=== PATIENT | female | born 1970 | race Two or more races ===

== ENCOUNTER 2021-06-14 12:53 | Emergency (ER) | payer OTHER ==
[~2021-06-14] VITALS: Ht 175.3 cm; Wt 95.3 kg
[2021-06-14 14:49] VITALS: BP 132/87
[2021-06-14] MEDS ORDERED: KETOROLAC TROMETH 60MG/2ML VIAL IM ONE (15:00)
== END 2021-06-14 15:11 | disposition home or self-care (01) ==
LOC: ER 12:53
DX: S66.911A Strain of unspecified muscle, fascia and tendon at wrist and hand level, right hand, initial encounter (principal); M19.071 Primary osteoarthritis, right ankle and foot; X50.1XXA Overexertion from prolonged static or awkward postures, initial encounter; Y93.89 Activity, other specified; Y92.89 Other specified places as the place of occurrence of the external cause; Y99.8 Other external cause status
CPT/HCPCS: 29125; 73110; 73130; 73630; 96372; 99285; J1885

== ENCOUNTER 2021-12-26 13:24 | Emergency (ER) | payer OTHER ==
[~2021-12-26] VITALS: Ht 175.3 cm; Wt 90.7 kg
[2021-12-26 13:26] VITALS: BP 130/82
[2021-12-26] MEDS ORDERED: ONDANSETRON HCL 4 MG/2 ML VIAL IV ONE (14:00)
[2021-12-26] MEDS ORDERED: SODIUM CHLORIDE 0.9% 1,000 ML IV ONE (14:00)
[2021-12-26] MEDS ORDERED: KETOROLAC TROMETH 30 MG/ML 1ML VIAL IV ONE (14:00)
[2021-12-26 14:31] LABS: Basophils # (auto) 0.2 10 ^3/uL (0-0.2); Basophils % (auto) 2.5 % (0.0-2.0); Eosinophils # (auto) 0.1 10 ^3/uL (0-0.8); Eosinophils % (auto) 1.1 % (0.0-7.0); Hematocrit 40.4 % (36.0-46.0); Hemoglobin 13.1 g/dL (12.2-16.2); Lymphocytes # (auto) 0.7 10 ^3/uL (0.4-5.4); Lymphocytes % (auto) 9.8 % (10.0-50.0); Mean Corpuscular Hemoglobin 28.3 pg (28.0-32.0); Mean Corpuscular Hgb Conc. 32.5 g/dL (32.0-36.0); Mean Corpuscular Volume 86.8 fL (80.0-100.0); Monocytes # (auto) 0.9 10 ^3/uL (0-1.3); Monocytes % (auto) 11.8 % (0.0-12.0); Neutrophils # (auto) 5.4 10 ^3/uL (1.6-8.6); Neutrophils % (auto) 74.8 % (37.0-80.0); Nucleated Red Blood Cells % 0.1 %; Red Blood Cells 4.65 10^6/uL (4.0-5.20); Red Cell Distribution Width 13.9 % (11.8-14.3); White Blood Cell 7.2 10^3/uL (4.4-10.8)
[2021-12-26 14:41] LABS: Albumin 3.6 g/dL (3.4-5.0); Calcium 9.6 mg/dL (8.5-10.1); Potassium 4.5 mmol/L (3.5-5.1)
[2021-12-26 14:44] LABS: BUN/Creatinine Ratio 7.9; Bilirubin, Total 0.5 mg/dL (0.2-1.0); Total Protein 7.4 g/dL (6.4-8.2)
[2021-12-26 15:31] LABS: Urine Bacteria NONE SEEN /hpf (None Seen); Urine Blood Negative /uL (Negative); Urine Specific Gravity 1.011 (1.001-1.035); Urine WBC 1 /hpf (0 - 5)
[2021-12-26 15:51] LABS: Alcohol, Urine < 3.0 mg/dL (0-10); Amphetamine Screen, Urine NEGATIVE (NEGATIVE); Barbiturate Scree,Urine NEGATIVE (NEGATIVE); Benzodiazephine Screen, Urine NEGATIVE (NEGATIVE); Cannabinoid Screen, Urine NEGATIVE (NEGATIVE); Cocaine Screen, Urine NEGATIVE (NEGATIVE); Opiate Scree,Urine NEGATIVE (NEGATIVE); Phencyclidine Screen, Urine NEGATIVE (NEGATIVE)
[2021-12-26] MEDS ORDERED: FAMOTIDINE (10MG/ML) 2ML VL IV ONE (16:00)
[2021-12-26] MEDS ORDERED: ONDA-144 PO (16:00)
[2021-12-26] MEDS ORDERED: OME40GT PO (16:00)
== END 2021-12-26 16:27 | disposition home or self-care (01) ==
LOC: ER 13:24
DX: R10.9 Unspecified abdominal pain (principal); R11.0 Nausea; I10 Essential (primary) hypertension; T50.905A Adverse effect of unspecified drugs, medicaments and biological substances, initial encounter; Y92.9 Unspecified place or not applicable
CPT/HCPCS: 36415; 80053; 80307; 81001; 85025; 93005; 96361; 96374; 96375; 99284; J1885; J2405; J3490; J7030

== ENCOUNTER 2025-01-08 02:33 | Inpatient (IN) | payer OTHER ==
[~2025-01-08] VITALS: Ht 175.3 cm; Wt 96.1 kg
[~2025-01-08 02:33] MED LIST: OME40GT PO; ONDA-144 PO
--- NOTE | 2025-01-08 02:49 | ED.PDOC ---
GI ASSESSMENT HPI Comments 54-YEAR-OLD FEMALE BIBA FOR CC OF ABD PAIN (LLQ) X 1 DAY, AND CONSTIPATION X 1 WEEK. PT REPORTS R KNEE SX RECENTLY AND IS CURRENTLY TAKING OPIOIDS. PATIENT ALSO STATES DIFFICULTY URINATING. DENIES FEVER, CHILLS, NAUSEA, VOMITING, OR DIARRHEA. Time Seen by MD: 02:43 Reviewed Notes: Nurses Notes, Pressure Washer Notes, Medications, Allergies Allergies: Coded Allergies: Ibuprofen (Verified Allergy, Unknown, 06/14/21) Iron (Verified Adverse Reaction, Unknown, RASHES, 01/08/25) Home Meds Active Scripts Omeprazole (Prilosec Susp (For Gt)) 40 Mg Ss, 40 MG PO DAILY, #30 ML Prov:BETSEY JOHNS 12/26/21 Ondansetron (Zofran) 4 Mg Tab, 4 MG PO BID, #20 TAB Prov:BETSEY JOHNS 12/26/21 Information Source: Patient Past Medical History PAST MEDICAL HISTORY: HTN Surgical History: Denies all surgeries GENERAL ACCOUNTING CLERK History: Denies all GENERAL ACCOUNTING CLERK Hx Family History Family History: Reviewed,noncontributory to illness Social History Smoker: Non-Smoker Alcohol: Denies ETOH Use Drugs: Denies Drug Use Lives In: Home Constitutional: denies: chills, diaphoresis, fatigue, fever, malaise, sweats, weakness, others EENTM: denies: blurred vision, double vision, ear bleeding, ear discharge, ear drainage, ear pain, ear ringing, eye pain, eye redness, hearing loss, mouth pain, mouth swelling, nasal discharge, nose bleeding, nose congestion, nose pain, photophobia, tearing, throat pain, throat swelling, voice changes, others Respiratory: denies: cough, hemoptysis, orthopnea, SOB at rest, shortness of breath, SOB with excertion, stridor, wheezing, others Cardiovascular: denies: chest pain, dizzy spells, diaphoresis, Dyspnea on exertion, edema, irregular heart beat, left arm pain, lightheadedness, palpitations, PND, syncope, others Gastrointestinal: reports: abdomen distended, abdominal pain, constipated; denies: blood streaked bowels, diarrhea, dysphagia, difficulty swallowing, hematemesis, melena, nausea, poor appetite, poor fluid intake, rectal bleeding, rectal pain, vomiting, others Genitourinary: denies: abnormal vagina bleeding, burning, dyspareunia, dysuria, flank pain, frequency, hematuria, incontinence, pain, , vagina discharge, urgency, others Neurological: denies: dizziness, fainting, headache, left sided numbness, left sided weakness, numbness, paresthesia, pre-existing deficit, right sided numbness, right sided weakness, seizure, speech problems, tingling, tremors, weakness, others Musculoskeletal: denies: back pain, gout, joint pain, joint swelling, muscle pain, muscle stiffness, neck pain, others Integumetry: denies: bruises, change in color, change in hair/nails, dryness, laceration, lesions, lumps, rash, wounds, others Allergic/Immunocompromised: denies: Difficulty Healing, Frequent Infections, Hives, Itching, others Hematologic/Lymphatic: denies: anemia, blood clots, easy bleeding, easy bruising, swollen glands, others Endocrine: denies: excessive hunger, excessive sweating, excessive thirst, excessive urination, flushing, intolerance to cold, intolerance to heat, unexplained weight gain, unexplained weight loss, others Psychiatric: denies: anxiety, bipolar disorder, depression, hopeless, panic disorder, schizophrenia, sleepless, suicidal, others Physical Exam General Appearance: No Apparent Distress, Normal HEENT: Pharynx Normal Neck: Full Range of Motion, Non-Tender Respiratory: Chest Non-Tender, Lungs Clear, No Respiratory Distress, Normal Breath Sounds Cardiovascular: No Edema, No JVD, No Murmur, No Gallop, Normal Peripheral P ulses, Regular Rate/Rhythm Breast Exam: Deferred Gastrointestinal: No Organomegaly, No Pulsatile Mass, Normal Bowel Sounds, Soft, Suprapubic (Tenderness on palpation), Tenderness (Left lower quadrant with guarding), Other (Negative CVA tenderness) Genitalia: Deferred Pelvic: Deferred Rectal: Deferred Extremities: No calf tenderness, Normal capillary refill, Normal inspection, N ormal range of motion, Non-tender, No pedal edema Musculoskeletal : Apperance: Normal Neurologic: Alert, circular saw edge fuser II-XII nml as Tested, No Motor Deficits, Normal Affect, Normal Mood, No Sensory Deficits Cerebellar Function: Normal Reflexes: Normal Skin: Dry, Normal Color, Warm Lymphatic: No Adenopathy Was a procedure done? Was a procedure done?: No GI differential Dx Differential Diagnosis: Bowel Obstruction, Constipation, Diverticular disease, Gastroenteritis, Inflammatory BD, UTI, Urolithiasis X-Ray, Labs, Meds, VS Vital Signs Date Time Temp Pulse Resp B/P (MAP) Pulse Ox O2 Delivery O2 Flow Rate FiO2 01/08/25 05:00 94 34 140/79 (99) 96 01/08/25 03:30 98.4 96 12 147/72 (97) 98 98.4 01/08/25 03:15 Room Air* 0 21 01/08/25 02:33 97.9 102 20 149/96 (113) 100 97.9 Lab Test 01/08/25 04:38 01/08/25 03:50 01/08/25 03:15 Range/Units Lactic Acid Level 2.1 *H 0.4-2.0 mmol/L Urine Color Light-yellow Yellow Urine Clarity Clear Clear Urine pH 6.5 5.0-9.0 Urine Specific [place] 1.012 1.001-1.035 Urine Protein Negative Negative Urine Ketones Negative Negative Urine Blood Negative Negative /uL Urine Nitrite Negative Negative Urine Bilirubin Negative Negative Urine Urobilinogen Normal Negative mg/dL Urine Leukocyte Esterase 1+ Negative /uL Urine RBC 1 0 - 4 /hpf Urine Microscopic WBC 1 0-5 /HPF Urine Squamous Epithelial Cells Few <5 /hpf Urine Bacteria None seen None Seen /hpf Urine Glucose Normal Normal mg/dL White Blood Count 14.4 H 4.4-10.8 10^3/uL Red Blood Count 4.17 4.0-5.20 10^6/uL Hemoglobin 12.0 L 12.2-16.2 g/dL Hematocrit 36.1 36.0-46.0 % Mean Corpuscular Volume 86.6 80.0-100.0 fL Mean Corpuscular Hemoglobin 28.8 28.0-32.0 pg Mean Corpuscular Hemoglobin Concent 33.2 32.0-36.0 g/dL Red Cell Distribution Width 13.9 11.8-14.3 % Platelet Count 405 140-450 10^3/uL Mean Platelet Volume 7.8 6.9-10.8 fL Neutrophils (%) (Auto) 89.6 H 37.0-80.0 % Lymphocytes (%) (Auto) 4.1 L 10.0-50.0 % Monocytes (%) (Auto) 5.5 0.0-12.0 % Eosinophils (%) (Auto) 0.1 0.0-7.0 % Basophils (%) (Auto) 0.7 0.0-2.0 % Neutrophils # (Auto) 12.9 H 1.6-8.6 10 ^3/uL Lymphocytes # (Auto) 0.6 0.4-5.4 10 ^3/uL Monocytes # (Auto) 0.8 0-1.3 10 ^3/uL Eosinophils # (Auto) 0 0-0.8 10 ^3/uL Basophils # (Auto) 0.1 0-0.2 10 ^3/uL Nucleated Red Blood Cells 0.0 % Sodium Level 141 136-145 mmol/L Potassium Level 4.3 3.5-5.1 mmol/L Chloride Level 106 98-107 mmol/L Carbon Dioxide Level 25 20-31 mmol/L Anion Gap 10 5-15 Blood Urea Nitrogen 9 9-23 mg/dL Creatinine 1.02 0.550-1.02 mg/dL Glomerular Filtration Rate Calc 65 >90 mL/min BUN/Creatinine Ratio 8.8 L 10.0-20.0 Serum Glucose 109 H 74-106 mg/dL Calcium Level 9.8 8.7-10.4 mg/dL Total Bilirubin 0.6 0.2-1.0 mg/dL Aspartate Amino Transferase (AST) 25 13-40 U/L Alanine Aminotransferase (ALT) 18 7-40 U/L Alkaline Phosphatase 127 H 46-116 U/L Total Protein 6.7 5.7-8.2 g/dL Albumin 4.2 3.2-4.8 g/dL Lipase 29 12-53 U/L Current Medications Medications (Trade) Dose Ordered Sig/Sheeba Route Start Time Stop Time Status Last Admin Sodium Chloride 1,000 ml @ 1,000 mls/hr Q1H ONCE IV 01/08/25 03:00 01/08/25 03:59 DC 01/08/25 03:15 Lactulose 60 ml ONCE ONCE PO 01/08/25 04:30 01/08/25 04:31 DC 01/08/25 04:45 X-Ray, Labs, Meds, VS Comment IMAGING: CT ABD/PELVIS IMPRESSION: 1. No acute abdominal or pelvic findings. 2. Retained rectal stool. LABS: CBC ELEVATED WHITE COUNT NEUTROPHILS. CMP WITHIN NORMAL LIMITS LACTIC ACID 2.1 UA POSITIVE RBCS, LEUKOCYTE ESTERASE AND WBC MEDICATIONS: LACTULOSE 60 GRAMS P.O. NS 1000 ML IV BOLUS PLAN: ADMIT FOR INTRACTABLE ABDOMINAL PAIN, UTI, AND LEUKOCYTOSIS. PENDING 2ND LACTIC ACID Time of 1ST Reevaluation: 02:51 Reevaluation 1ST: Unchanged Patient Education/Counseling: Diagnosis, Treatment, Prognosis, Need For Follow Up Family Education/Counseling: No Family Present Sepsis Sepsis Reasesment Focused Exam Orders: Laboratory Tests 01/08/25 04:38: Lactic Acid Level 2.1 Departure 1 Departure Time of Disposition: 05:09 Impression: Primary Impression: Intractable abdominal pain Additional Impressions: Urinary tract infection Qualified Codes: N30.00 - Acute cystitis without hematuria Leukocytosis Qualified Codes: D72.829 - Elevated white blood cell count, unspecified Disposition: ADMITTED INPATIENT Condition: Stable Discharged With: Self Critical Care Note Critical Care Time?: No Stability Stability form required: MAYCOL Dhaliwal Jan 08, 2025 02:49
[2025-01-08] MEDS: SODIUM CHLORIDE 0.9% 1,000 ML IV ONE ×2 (03:15→12:15)
--- NOTE | 2025-01-08 03:35 | DVH ---
Exam: CT CT AB PEL WO CON-NO ORAL OR IV History: Left lower quadrant abdominal pain Comparison Study: None Technique: Multidetector spiral CT of the abdomen was performed from lung bases to pubic symphysis. I maging was performed without IV contrast. Axial, coronal and sagittal multiplanar reformats were obta ined from the axial data set by the technologist. Radiation Dose : 1. Abdomen/Pelvis: CTDIvol 19.27 mGy, DLP 1226.49 mGy*cm. Findings: Evaluation of solid organs is limited due to lack of intravenous contrast use. Lung Bases: No acute or significant lung base finding. Normal heart size. No pleural or pericardial effusion. Liver: The liver is normal in size. No focal lesions. Gallbladder and Biliary Tree: Unremarkable Spleen: Unremarkable Pancreas: The pancreas is grossly normal in appearance. Adrenal Glands: Unremarkable Kidneys: Kidneys are grossly normal without obstructing calculi or hydronephrosis. Punctate parenchym al calcification noted within the posterior left renal midpole. Bladder: Grossly unremarkable for degree of distention. Bowel: Postsurgical changes noted involving the stomach. There is a small hiatal hernia. Retained re ctal stool. Small bowel and colon are otherwise normal in caliber and distribution. The appendix is n ormal. Ascites: Absent Lymphadenopathy: No mesenteric, retroperitoneal or periportal lymphadenopathy. Abdominal Wall and Mesentery: Unremarkable. Vasculature: The visualized abdominal aorta is normal in size and caliber. Evaluation of abdominal a nd pelvic vessels is limited due to lack of intravenous contrast. Pelvic Organs: Unremarkable Musculoskeletal: No aggressive focal bony lesions, acute fractures or dislocation. IMPRESSION: 1. No acute abdominal or pelvic findings. 2. Retained rectal stool. Radiation optimization: All CT scans at this facility use at least one of these dose optimization saurav hniques: automated exposure control mA and/or kV adjustment per patient size (includes targeted exam s where dose is matched to clinical indication) or iterative reconstruction.
[2025-01-08 03:42] LABS: Basophils # (auto) 0.1 10 ^3/uL (0-0.2); Basophils % (auto) 0.7 % (0.0-2.0); Eosinophils # (auto) 0 10 ^3/uL (0-0.8); Eosinophils % (auto) 0.1 % (0.0-7.0); Hematocrit 36.1 % (36.0-46.0); Lymphocytes # (auto) 0.6 10 ^3/uL (0.4-5.4); Lymphocytes % (auto) 4.1 % (10.0-50.0); Mean Corpuscular Hemoglobin 28.8 pg (28.0-32.0); Mean Corpuscular Hgb Conc. 33.2 g/dL (32.0-36.0); Mean Corpuscular Volume 86.6 fL (80.0-100.0); Monocytes # (auto) 0.8 10 ^3/uL (0-1.3); Monocytes % (auto) 5.5 % (0.0-12.0); Neutrophils # (auto) 12.9 10 ^3/uL (1.6-8.6); Neutrophils % (auto) 89.6 % (37.0-80.0); Platelet Count (auto) 405 10^3/uL (140-450); Red Blood Cells 4.17 10^6/uL (4.0-5.20); Red Cell Distribution Width 13.9 % (11.8-14.3); White Blood Cell 14.4 10^3/uL (4.4-10.8)
[2025-01-08 03:56] LABS: Alanine Aminotransferase 18 U/L (7-40); Albumin 4.2 g/dL (3.2-4.8); Anion Gap 10 (5-15); Aspartate Aminotransferase 25 U/L (13-40); BUN/Creatinine Ratio 8.8 (10.0-20.0); Bilirubin, Total 0.6 mg/dL (0.2-1.0); Blood Urea Nitrogen 9 mg/dL (9-23); Calcium 9.8 mg/dL (8.7-10.4); Carbon Dioxide 25 mmol/L (20-31); Chloride 106 mmol/L (98-107); Lipase 29 U/L (12-53); Potassium 4.3 mmol/L (3.5-5.1); Sodium 141 mmol/L (136-145); Total Protein 6.7 g/dL (5.7-8.2)
[2025-01-08 03:57] LABS: Alkaline Phosphatase 127 U/L (46-116); Glucose 109 mg/dL (74-106)
[2025-01-08 04:16] LABS: Urine Bacteria None Seen /hpf (None Seen)
[2025-01-08 04:20] LABS: Urine Blood Negative /uL (Negative); Urine Clarity Clear (Clear); Urine Color Light-Yellow (Yellow); Urine Protein, UAD Negative (Negative); Urine Specific Gravity 1.012 (1.001-1.035); Urine Squamous Epithelial Cell FEW /hpf (<5); Urine Urobilinogen Normal (Negative); Urine WBC 1 /HPF (0-5); Urine pH 6.5 (5.0-9.0)
[2025-01-08] MEDS: LACTULOSE 20Gm/30ML SOLN PO ONE (04:45)
[2025-01-08 05:03] LABS: Lactic Acid w/Reflex 2.1 mmol/L (0.4-2.0)
[2025-01-08] MEDS: cefTRIAXone 1GM/50ML D5W 50 ML IV ONE (05:37)
[2025-01-08] MEDS: FLEET ENEMA(ADULT) 135 ML PR ONE (06:20)
[2025-01-08 09:15] VITALS: PULSE 72; RESP 15; O2SAT 100
[2025-01-08] MEDS: cefTRIAXone 2GM/50ML D5W 50 ML IV SCH (12:15)
[2025-01-08] MEDS ORDERED: MORPHINE SULFATE INJ 2 MG/ml SYRG IV PRN (12:15)
[2025-01-08] MEDS ORDERED: NITROGLYCERIN 0.4 MG SL TAB SL PRN (12:15)
[2025-01-08] MEDS ORDERED: MORPHINE SULFATE 4 MG/ML SYR/VIAL IV PRN (12:45)
--- NOTE | 2025-01-08 13:19 | DVH ---
CLINICAL INFORMATION: 54 years old, Female; right knee replacement. TECHNIQUE: Axial CT images of the right knee were obtained without IV contrast. Coronal and sagittal reformatted images were obtained, reviewed, and stored. All CT scans at this medical facility are pe rformed using dose modulation techniques as appropriate to a performed exam including the following: Automated exposure control was utilized; adjustment of the MA and/or KV according to patient size; an d use of iterative reconstruction technique. CTDIvol = 25.01 mGy DLP = 845.23 mGy-cm COMPARISON: None FINDINGS: Postsurgical changes of right total knee arthroplasty with associated artifact, limiting ev aluation of adjacent structures. The prosthesis appears intact and in satisfactory alignment and posi tion. No periprosthetic fracture visualized. No CT findings are seen to suggest loosening of the pros thesis. There is an intramedullary tract in the distal femur from prior postsurgical changes. There i s a small locule of gas within the tract, likely residual sequelae of postsurgical changes. There is a small joint effusion in the suprapatellar recess. Quadriceps mechanism and patellar tendon appear g rossly intact given the limitations of the examination. Mild edema in the prepatellar soft tissues, m ay be residual sequelae from previous surgery. No other soft tissue abnormality identified. IMPRESSION: 1. Postsurgical changes of right total knee arthroplasty. No CT evidence for acute prosthesis complic ation. 2. No evidence of acute fracture. 3. Additional findings as detailed above.
[2025-01-08] MEDS: ENOXAPARIN SOD 40 MG/0.4 ML SYRINGE SC ONE (13:20)
--- NOTE | 2025-01-08 14:58 | DVHHP2 ---
History of Present Illness Reason for Visit: Weakness and constipation History of Present Illness 54 yo f with history of depression, anxiety, knee OA s/p right knee replacement. Came with history of feeling nauseated, some abdominal pain and vomiting. Feels more weaker. No fever chills or any other symptoms. Psych: Anxiety, Depression Past Surgical History: Total knee replacement Family History: None Review of Systems Gastrointestinal: Nausea, Vomiting, Abdominal Pain Neurological: Weakness Allergies: Coded Allergies: Ibuprofen (Verified Allergy, Unknown, 06/14/21) Iron (Verified Adverse Reaction, Unknown, RASHES, 01/08/25) Medications Current Medications Medications Dose Ordered Sig/Sheeba Route Start Time Stop Time Status Last Admin Dose Admin Nitroglycerin 0.4 mg Q5MINP PRN SL 01/08/25 12:15 Morphine Sulfate 2 mg Q30M PRN IV 01/08/25 12:15 UNV Acetaminophen/ Hydrocodone Bitart 1 tab Q4HPRN PRN PO 01/08/25 12:15 Ceftriaxone Sodium/Dextrose 50 ml @ 50 mls/hr DAILY IV 01/08/25 12:15 Morphine Sulfate 2 mg Q30M PRN IV 01/08/25 12:45 Exam Vital Signs Vital Signs Date Time Temp Pulse Resp B/P (MAP) Pulse Ox O2 Delivery O2 Flow Rate FiO2 01/08/25 11:00 88 129/80 (96) 100 01/08/25 09:15 15 Room Air* 0 21 01/08/25 09:15 98.1 98.1 General Appearance: Alert, Oriented X3 Respiratory: Clear to auscultation Cardiovascular: Regular rate, Normal S1 Abdominal: Normal bowel sounds Extremities: Other (Right Knee with wound and sutures, no pus or drainage, ) Skin: No rashes Neuro: Normal gait, Normal speech, Strength at 5/5 X4 ext Labs/Xrays Labs Test 01/08/25 06:47 01/08/25 03:50 01/08/25 03:15 Range/Units Lactic Acid Level 2.4 *H 0.4-2.0 mmol/L Urine Color Light-yellow Yellow Urine Clarity Clear Clear Urine pH 6.5 5.0-9.0 Urine Specific [place] 1.012 1.001-1.035 Urine Protein Negative Negative Urine Ketones Negative Negative Urine Blood Negative Negative /uL Urine Nitrite Negative Negative Urine Bilirubin Negative Negative Urine Urobilinogen Normal Negative mg/dL Urine Leukocyte Esterase 1+ Negative /uL Urine RBC 1 0 - 4 /hpf Urine Microscopic WBC 1 0-5 /HPF Urine Squamous Epithelial Cells Few <5 /hpf Urine Bacteria None seen None Seen /hpf Urine Glucose Normal Normal mg/dL White Blood Count 14.4 H 4.4-10.8 10^3/uL Red Blood Count 4.17 4.0-5.20 10^6/uL Hemoglobin 12.0 L 12.2-16.2 g/dL Hematocrit 36.1 36.0-46.0 % Mean Corpuscular Volume 86.6 80.0-100.0 fL Mean Corpuscular Hemoglobin 28.8 28.0-32.0 pg Mean Corpuscular Hemoglobin Concent 33.2 32.0-36.0 g/dL Red Cell Distribution Width 13.9 11.8-14.3 % Platelet Count 405 140-450 10^3/uL Mean Platelet Volume 7.8 6.9-10.8 fL Neutrophils (%) (Auto) 89.6 H 37.0-80.0 % Lymphocytes (%) (Auto) 4.1 L 10.0-50.0 % Monocytes (%) (Auto) 5.5 0.0-12.0 % Eosinophils (%) (Auto) 0.1 0.0-7.0 % Basophils (%) (Auto) 0.7 0.0-2.0 % Neutrophils # (Auto) 12.9 H 1.6-8.6 10 ^3/uL Lymphocytes # (Auto) 0.6 0.4-5.4 10 ^3/uL Monocytes # (Auto) 0.8 0-1.3 10 ^3/uL Eosinophils # (Auto) 0 0-0.8 10 ^3/uL Basophils # (Auto) 0.1 0-0.2 10 ^3/uL Nucleated Red Blood Cells 0.0 % Sodium Level 141 136-145 mmol/L Potassium Level 4.3 3.5-5.1 mmol/L Chloride Level 106 98-107 mmol/L Carbon Dioxide Level 25 20-31 mmol/L Anion Gap 10 5-15 Blood Urea Nitrogen 9 9-23 mg/dL Creatinine 1.02 0.550-1.02 mg/dL Glomerular Filtration Rate Calc 65 >90 mL/min BUN/Creatinine Ratio 8.8 L 10.0-20.0 Serum Glucose 109 H 74-106 mg/dL Calcium Level 9.8 8.7-10.4 mg/dL Total Bilirubin 0.6 0.2-1.0 mg/dL Aspartate Amino Transferase (AST) 25 13-40 U/L Alanine Aminotransferase (ALT) 18 7-40 U/L Alkaline Phosphatase 127 H 46-116 U/L Total Protein 6.7 5.7-8.2 g/dL Albumin 4.2 3.2-4.8 g/dL Lipase 29 12-53 U/L Assessment/Plan Assessment/Plan #Sepsis with WBC 14 #Lactic acidosis #Nausea and vomiting #Rule out right knee septic arthritis Admit to Med surg Will start IV rocephin Blood cx, urine cx CT right knee Lovenox IVF Repeat lactic acid Plan discussed with: Patient My Orders Orders - LYNSEY GARNETT MD Procedure Category Date Status Time Ct R Knee Wo Contrast CT 01/08/25 Resulted 12:10 Admit ADMIT 01/08/25 Transmitted 12:12 Nitroglycerin PHA 01/08/25 In Process Sublingual (Ntrostat 12:15 Stat Ekg For Chest ABDIAZIZ 01/08/25 In Process Pain 12:12 Notify Md Of Changes ABDIAZIZ 01/08/25 In Process From Base 12:12 Grain Elevator Clerk For ABDIAZIZ 01/08/25 In Process 24 Hours 12:12 Emergency Dysrhythmia [facility] 01/08/25 In Process Protocol 12:12 Rhythm Strips Once [facility] 01/08/25 In Process Every Shift 12:12 Oxygen By Nasal RT 01/08/25 Transmitted Cannula 12:12 Hydrocodone-Acet PHA 01/08/25 In Process 5/325mg Tab ([place] 12:15 Regular Diet DIET 01/08/25 Transmitted Lunch Sodium Chloride 0.9% PHA 01/08/25 In Process 12:15 Ceftriaxone 2gm/50ml PHA 01/08/25 In Process D5w (Rocephin 2gm/5 12:15 Complete Blood Count LAB 01/09/25 Verified 05:00 Complete Blood Count LAB 01/10/25 Verified 05:00 Complete Blood Count LAB 01/11/25 Verified 05:00 Complete Blood Count LAB 01/12/25 Verified 05:00 Complete Blood Count LAB 01/13/25 Verified 05:00 Complete Blood Count LAB 01/14/25 Verified 05:00 Complete Blood Count LAB 01/15/25 Verified 05:00 Basic Metabolic Panel LAB 01/09/25 Verified 05:00 Basic Metabolic Panel LAB 01/10/25 Verified 05:00 Basic Metabolic Panel LAB 01/11/25 Verified 05:00 Basic Metabolic Panel LAB 01/12/25 Verified 05:00 Basic Metabolic Panel LAB 01/13/25 Verified 05:00 Basic Metabolic Panel LAB 01/14/25 Verified 05:00 Basic Metabolic Panel LAB 01/15/25 Verified 05:00 Morphine Sulfate PHA 01/08/25 In Process Injection 12:45 Date of Service: Jan 08, 2025 Billing Provider: LYNSEY GARNETT MD Common Visit Codes: [id number] INP/OBS CARE (HIGH) LYNSEY GARNETT MD Jan 08, 2025 14:57
[2025-01-08 15:11] VITALS: BP 136/72; PULSE 90; RESP 18; TEMP 98.4; O2SAT 99
[2025-01-08 15:23] VITALS: BP 136/72; PULSE 90; RESP 18; TEMP 98.4; O2SAT 99
[2025-01-08] MEDS ORDERED: BUPR-581 PO (15:53)
[2025-01-08] MEDS ORDERED: VENL75CA3 PO (15:54)
[2025-01-08] MEDS ORDERED: GABA-1250 PO (16:09)
[2025-01-08] MEDS ORDERED: BACL10TA PO (16:09)
[2025-01-08] MEDS ORDERED: ASPI325T6 PO (16:10)
[2025-01-08] MEDS ORDERED: FOLI-119 PO (16:11)
[2025-01-08 16:39] VITALS: BP 128/77; PULSE 93; RESP 16; TEMP 98.7; O2SAT 100
[2025-01-08 20:00] VITALS: PULSE 82; RESP 18; O2SAT 99
[2025-01-08 21:00] VITALS: BP 121/79; PULSE 82; RESP 20; TEMP 99.1; O2SAT 100
[2025-01-09] VITALS (8 sets, daily range): BP systolic 118–141; BP diastolic 67–82; PULSE 79–88; RESP 15–18; TEMP 98.1–99.6; O2SAT 99–100
[2025-01-09] MEDS: GABAPENTIN 300 MG CAP PO PRN (00:48)
[2025-01-09] MEDS ORDERED: GABAPENTIN 300 MG CAP PO SCH (06:00)
[2025-01-09 06:15] LABS: Basophils # (auto) 0.1 10 ^3/uL (0-0.2); Basophils % (auto) 0.8 % (0.0-2.0); Eosinophils # (auto) 0.1 10 ^3/uL (0-0.8); Eosinophils % (auto) 1.2 % (0.0-7.0); Hematocrit 34.4 % (36.0-46.0); Hemoglobin 11.4 g/dL (12.2-16.2); Lymphocytes # (auto) 1.6 10 ^3/uL (0.4-5.4); Lymphocytes % (auto) 17.6 % (10.0-50.0); Mean Corpuscular Hgb Conc. 33.2 g/dL (32.0-36.0); Mean Corpuscular Volume 87.3 fL (80.0-100.0); Monocytes # (auto) 0.9 10 ^3/uL (0-1.3); Neutrophils # (auto) 6.2 10 ^3/uL (1.6-8.6); Neutrophils % (auto) 70.4 % (37.0-80.0); Platelet Count (auto) 384 10^3/uL (140-450); Red Blood Cells 3.94 10^6/uL (4.0-5.20); White Blood Cell 8.8 10^3/uL (4.4-10.8)
[2025-01-09 06:29] LABS: Potassium 3.6 mmol/L (3.5-5.1); Sodium 145 mmol/L (136-145)
[2025-01-09 06:30] LABS: Anion Gap 10 (5-15); Carbon Dioxide 23 mmol/L (20-31)
[2025-01-09 06:31] LABS: Calcium 9.3 mg/dL (8.7-10.4)
[2025-01-09 06:33] LABS: Chloride 112 mmol/L (98-107)
[2025-01-09 06:36] LABS: BUN/Creatinine Ratio 6.7 (10.0-20.0); Glucose 91 mg/dL (74-106)
[2025-01-09 06:44] LABS: Blood Urea Nitrogen 6 mg/dL (9-23)
--- NOTE | 2025-01-09 11:51 | DVHPN2 ---
Subjective Patient seen and examined at bedside, patient had right knee arthroplasty on December [address] Vergara in [place]. Patient reports abdominal pain for the past few days reports to be taking [place] at home for pain control has not had a bowel movement. Patient is started on IV antibiotics for septicemia for possible UTI. Patient is concerned her right knee wound is not healing well reviewed CT scan no signs of infection at this time. Patient needs to follow up with Orthopedics as outpatient. Changes from previous H/P or p: No Changes Gastrointestinal: No Nausea, No Vomiting, No Abdominal Pain, No Diarrhea, No Constipation, No Melena, No Hematochezia, No Other Objective Vitals Vital Signs Date Time Temp Pulse Resp B/P (MAP) Pulse Ox O2 Delivery O2 Flow Rate FiO2 01/09/25 09:03 98.2 88 16 124/78 (93) 99 98.2 01/09/25 07:58 Room Air* 0 21 Intake/Output Intake and Output 01/09/25 07:00 Intake Total 210 ml Output Total 2 ml Balance 208 ml Intake Oral 210 ml Output Urine/Stool Mix 2 ml # Voids 5 # Bowel Movements 8 Exam Gen: in bed NAD Cvs: N S1/S2, RRR Resp: BLAE Abd: Soft, Hypoactive Extension Specialist: AAO x 4 Ext: Right Knee wound dry, no evidence of infection Medications Current Medications Medications Dose Ordered Sig/Sheeba Route Start Time Stop Time Status Last Admin Dose Admin Nitroglycerin 0.4 mg Q5MINP PRN SL 01/08/25 12:15 Morphine Sulfate 2 mg Q30M PRN IV 01/08/25 12:15 UNV Acetaminophen/ Hydrocodone Bitart 1 tab Q4HPRN PRN PO 01/08/25 12:15 Ceftriaxone Sodium/Dextrose 50 ml @ 50 mls/hr DAILY IV 01/08/25 12:15 01/09/25 09:49 50 MLS/HR Morphine Sulfate 2 mg Q30M PRN IV 01/08/25 12:45 Gabapentin 300 mg TID PRN PO 01/09/25 00:30 01/09/25 00:48 300 MG Laboratory Results Laboratory Tests 01/09/25 05:35 Chemistry Test 01/09/25 05:35 Calcium Level 9.3 mg/dL (8.7-10.4) Urinalysis Test 01/08/25 03:50 Urine Color Light-yellow (Yellow) Urine Clarity Clear (Clear) Urine pH 6.5 (5.0-9.0) Urine Specific [place] 1.012 (1.001-1.035) Urine Protein Negative (Negative) Urine Ketones Negative (Negative) Urine Blood Negative /uL (Negative) Urine Nitrite Negative (Negative) Urine Bilirubin Negative (Negative) Urine Urobilinogen Normal mg/dL (Negative) Urine Leukocyte Esterase 1+ /uL (Negative) Urine RBC 1 /hpf (0 - 4) Urine Microscopic WBC 1 /HPF (0-5) Urine Squamous Epithelial Cells Few /hpf (<5) Urine Bacteria None seen /hpf (None Seen) Urine Glucose Normal mg/dL (Normal) Microbiology Microbiology Date/Time Source Procedure Growth Status 01/08/25 05:38 Blood Blood Culture - Preliminary NO GROWTH AFTER 24 HOURS OF INCUBATION. Resulted Assessment/Plan Assessment/Plan # Sepsis possibly due to UTI - Abx # Ileus vs Constipation - Lactulose - Miralax # Recent Right Knee Arthoplastly - F/u Dr. Vergara # Obesity - Nurse Tech on weight loss as outpatient # Goals of care discussion >18 mins FULL CODE Plan discussed with: Patient My Orders Orders - DONNA GARCIA MD Procedure Category Date Status Time Lactic Acid W/ Reflex LAB 01/09/25 Logged Order 11:33 Lactulose Oral PHA 01/09/25 Logged 11:45 Date of Service: Jan 09, 2025 Billing Provider: DONNA GARCIA MD Common Visit Codes: [id number] INP/OBS CARE(HIGH) Secondary Visit Codes: [id number] CARE PLAN 30 MINUTES DONNA GARCIA MD Jan 09, 2025 11:51
[2025-01-09] MEDS: POLYETHYLENE GLYCOL 17 GM PWDR PO ONE (12:02)
[2025-01-09] MEDS: LACTULOSE 20Gm/30ML SOLN PO ONE (12:02)
[2025-01-09] MEDS: HYDROcodone-ACET 5/325MG TAB PO PRN (15:34)
[2025-01-09] MEDS: GABAPENTIN 300 MG CAP PO SCH (21:24)
[2025-01-10 01:00] VITALS: BP 101/62; PULSE 80; RESP 19; TEMP 98.5; O2SAT 100
[2025-01-10 05:00] VITALS: BP 103/69; PULSE 72; RESP 17; TEMP 98.2; O2SAT 98
[2025-01-10 07:55] VITALS: RESP 16
[2025-01-10 09:00] VITALS: BP 129/72; PULSE 85; RESP 18; TEMP 98.5; O2SAT 100
[2025-01-10] MEDS: POLYETHYLENE GLYCOL 17 GM PWDR PO SCH (09:03)
[2025-01-10 09:43] LABS: Basophils # (auto) 0.1 10 ^3/uL (0-0.2); Basophils % (auto) 1.2 % (0.0-2.0); Eosinophils # (auto) 0.2 10 ^3/uL (0-0.8); Eosinophils % (auto) 2.6 % (0.0-7.0); Hematocrit 36.6 % (36.0-46.0); Lymphocytes # (auto) 1.1 10 ^3/uL (0.4-5.4); Lymphocytes % (auto) 18.6 % (10.0-50.0); Mean Corpuscular Hemoglobin 29.2 pg (28.0-32.0); Mean Corpuscular Hgb Conc. 32.9 g/dL (32.0-36.0); Mean Corpuscular Volume 88.7 fL (80.0-100.0); Monocytes # (auto) 0.5 10 ^3/uL (0-1.3); Monocytes % (auto) 8.5 % (0.0-12.0); Neutrophils # (auto) 4.2 10 ^3/uL (1.6-8.6); Neutrophils % (auto) 69.1 % (37.0-80.0); Platelet Count (auto) 402 10^3/uL (140-450); Red Blood Cells 4.12 10^6/uL (4.0-5.20); Red Cell Distribution Width 14.2 % (11.8-14.3); White Blood Cell 6.1 10^3/uL (4.4-10.8)
[2025-01-10 09:57] LABS: Potassium 3.5 mmol/L (3.5-5.1); Sodium 142 mmol/L (136-145)
[2025-01-10 09:58] LABS: Anion Gap 9 (5-15); Carbon Dioxide 22 mmol/L (20-31)
[2025-01-10 09:59] LABS: Calcium 9.6 mg/dL (8.7-10.4)
[2025-01-10 10:03] LABS: BUN/Creatinine Ratio 4.8 (10.0-20.0)
[2025-01-10 10:08] LABS: Blood Urea Nitrogen 5 mg/dL (9-23); Chloride 111 mmol/L (98-107); Glucose 154 mg/dL (74-106)
[2025-01-10] MEDS ORDERED: POLY335015 PO (11:31)
[2025-01-10] MEDS ORDERED: CEPH250C PO (11:31)
--- NOTE | 2025-01-10 11:33 | DVHDS2 ---
Discharge Summary Date of Admission Jan 08, 2025 at 12:12 Date of Discharge: Jan 10, 2025 Admitting Diagnosis Sepsis possibly due to UTI Labs/Diagnostic Data: Laboratory Results Test 01/10/25 09:35 01/09/25 12:07 01/08/25 03:50 01/08/25 03:15 White Blood Count 6.1 10^3/uL (4.4-10.8) Red Blood Count 4.12 10^6/uL (4.0-5.20) Hemoglobin 12.0 g/dL (12.2-16.2) Hematocrit 36.6 % (36.0-46.0) Mean Corpuscular Volume 88.7 fL (80.0-100.0) Mean Corpuscular Hemoglobin 29.2 pg (28.0-32.0) Mean Corpuscular Hemoglobin Concent 32.9 g/dL (32.0-36.0) Red Cell Distribution Width 14.2 % (11.8-14.3) Platelet Count 402 10^3/uL (140-450) Mean Platelet Volume 7.7 fL (6.9-10.8) Neutrophils (%) (Auto) 69.1 % (37.0-80.0) Lymphocytes (%) (Auto) 18.6 % (10.0-50.0) Monocytes (%) (Auto) 8.5 % (0.0-12.0) Eosinophils (%) (Auto) 2.6 % (0.0-7.0) Basophils (%) (Auto) 1.2 % (0.0-2.0) Neutrophils # (Auto) 4.2 10 ^3/uL (1.6-8.6) Lymphocytes # (Auto) 1.1 10 ^3/uL (0.4-5.4) Monocytes # (Auto) 0.5 10 ^3/uL (0-1.3) Eosinophils # (Auto) 0.2 10 ^3/uL (0-0.8) Basophils # (Auto) 0.1 10 ^3/uL (0-0.2) Nucleated Red Blood Cells 0.0 % Sodium Level 142 mmol/L (136-145) Potassium Level 3.5 mmol/L (3.5-5.1) Chloride Level 111 mmol/L (98-107) Carbon Dioxide Level 22 mmol/L (20-31) Anion Gap 9 (5-15) Blood Urea Nitrogen 5 mg/dL (9-23) Creatinine 1.04 mg/dL (0.550-1.02) Glomerular Filtration Rate Calc 64 mL/min (>90) BUN/Creatinine Ratio 4.8 (10.0-20.0) Serum Glucose 154 mg/dL (74-106) Calcium Level 9.6 mg/dL (8.7-10.4) Lactic Acid Level 1.3 mmol/L (0.4-2.0) Urine Color Light-yellow (Yellow) Urine Clarity Clear (Clear) Urine pH 6.5 (5.0-9.0) Urine Specific [place] 1.012 (1.001-1.035) Urine Protein Negative (Negative) Urine Ketones Negative (Negative) Urine Blood Negative /uL (Negative) Urine Nitrite Negative (Negative) Urine Bilirubin Negative (Negative) Urine Urobilinogen Normal mg/dL (Negative) Urine Leukocyte Esterase 1+ /uL (Negative) Urine RBC 1 /hpf (0 - 4) Urine Microscopic WBC 1 /HPF (0-5) Urine Squamous Epithelial Cells Few /hpf (<5) Urine Bacteria None seen /hpf (None Seen) Urine Glucose Normal mg/dL (Normal) Total Bilirubin 0.6 mg/dL (0.2-1.0) Aspartate Amino Transferase (AST) 25 U/L (13-40) Alanine Aminotransferase (ALT) 18 U/L (7-40) Alkaline Phosphatase 127 U/L (46-116) Total Protein 6.7 g/dL (5.7-8.2) Albumin 4.2 g/dL (3.2-4.8) Lipase 29 U/L (12-53) Other Laboratory Tests 01/10/25 09:35 Brief Hx & Hospital Course: Patient seen and examined at bedside, patient had right knee arthroplasty on December [address] Vergara in [place]. Patient reports abdominal pain for the past few days reports to be taking [place] at home for pain control has not had a bowel movement. Patient is started on IV antibiotics for septicemia for possible UTI. Patient is concerned her right knee wound is not healing well reviewed CT scan no signs of infection at this time. Patient needs to follow up with Orthopedics as outpatient. Patient will be discharged home to followup with Ortho with Keflex. Condition at Discharge: Stable Final Diagnosis/Problems List # Sepsis possibly due to UTI - Abx # Ileus vs Constipation - Miralax # Recent Right Knee Arthoplastly - F/u Dr. Vergara # Obesity - [employer] on weight loss as outpatient # Goals of care discussion >18 mins FULL CODE Discharge Disposition: Home Discharge Instruct/Medications Diet: Regular Activity: Light activity Follow Up/Referral: Ortho Medications: Keflex Discharge Statement: "Patient was advised to return to the ER or call 911 if any headaches, dizziness, shortness of breath, chest pain, abdominal pain, bleeding, fevers, or worsening of medical condition. Patient was counseled about treatment plan, medications, possible side effects, patientverbalized understanding. All questions were answered to the best of my ability. This discharge took greater then 30 minutes in planning, reviewing documentation, counseling the patient, and discussing with other team members." ASSESSMENT ASSESSMENT Assessment Date of Service: Jan 10, 2025 Billing Provider: DONNA GARCIA MD Common Visit Codes: 37395-UFE/OBS DISCH DAY >30min DONNA GARCIA MD Jan 10, 2025 11:32
[2025-01-10 12:11] VITALS: TEMP 36.9
--- NOTE | 2025-01-11 13:28 | PEER ---
Peer to Peer Review Time DATE: 01/11/25 TIME: 13:28 Review and Recommendations: Spoke with Dr. Johnson approved for inpatient for Sepsis. DONNA GARCIA MD Jan 11, 2025 13:28
== END 2025-01-10 13:33 | disposition home or self-care (01) | DRG 872 ==
LOC: ER 02:33 → EDBD 02:33 → OVERFLOW 12:12 → CENTRAL 14:49
PROVIDERS: ADMIT Internal Medicine; ATTEND Internal Medicine
DX: A41.9 Sepsis, unspecified organism (principal); E87.20 Acidosis, unspecified; M00.9 Pyogenic arthritis, unspecified; K56.7 Ileus, unspecified; N39.0 Urinary tract infection, site not specified; E66.9 Obesity, unspecified; F32.A Depression, unspecified; F41.9 Anxiety disorder, unspecified; Z68.31 Body mass index [BMI] 31.0-31.9, adult; K59.00 Constipation, unspecified; I10 Essential (primary) hypertension; Z96.651 Presence of right artificial knee joint; Z88.6 Allergy status to analgesic agent; Z91.048 Other nonmedicinal substance allergy status
CPT/HCPCS: 36415; 73700; 74176; 80048; 80053; 81001; 83605; 83690; 85025; 87040; 96365; 96372; G0378